=== PATIENT | female | born 1990 | race Hispanic/Latino ===

== ENCOUNTER → 2023-03-02 | Outpatient (REF) | payer MEDICARE, OTHER ==
[~2023-03-02] MED LIST: DAPTOMYCIN500 MG IV; HUMALOG MI100 UNIT/2 SQ; MINERAL OIL/PETROLAT/GLYCERI 6OZ BTL ONE; PIOGLITAZONE HC45 MG PO; ROSUVASTATIN CA40 MG; VITAMIN B-650 MG PO; XANAX1 MG PO; ZETIA10 MG PO
== END ==
LOC: WCC 08:56
PROVIDERS: ATTEND Podiatrist Foot & Ankle Surgery
DX: E11.621 Type 2 diabetes mellitus with foot ulcer (principal); M86.172 Other acute osteomyelitis, left ankle and foot; L97.528 Non-pressure chronic ulcer of other part of left foot with other specified severity; R60.0 Localized edema

== ENCOUNTER → 2023-03-11 | Outpatient (REF) | payer MEDICARE, OTHER | LOC: WCC 09:34 | PROVIDERS: ATTEND Podiatrist Foot & Ankle Surgery | DX: E11.621 Type 2 diabetes mellitus with foot ulcer (principal); M86.172 Other acute osteomyelitis, left ankle and foot; L97.528 Non-pressure chronic ulcer of other part of left foot with other specified severity; R60.0 Localized edema ==

== ENCOUNTER 2023-04-13 08:43 | Outpatient (RCR) | payer MEDICARE, OTHER ==
[2023-04-13] MEDS ORDERED: MINERAL OIL/PETROLAT/GLYCERI 6OZ BTL ONE (12:23)
== END 2023-04-13 23:25 | disposition home or self-care (01) ==
LOC: WCC 08:43
PROVIDERS: ATTEND Podiatrist Foot & Ankle Surgery
DX: E11.621 Type 2 diabetes mellitus with foot ulcer (principal); M86.172 Other acute osteomyelitis, left ankle and foot; L97.528 Non-pressure chronic ulcer of other part of left foot with other specified severity; L97.526 Non-pressure chronic ulcer of other part of left foot with bone involvement without evidence of necrosis; R60.0 Localized edema
CPT/HCPCS: 11042; 36415 ×14; 82948 ×14; 99212; 99213 ×10; G0277 ×14

== ENCOUNTER → 2023-05-13 | Outpatient (RCR) | payer MEDICARE, OTHER ==
[~2023-05-13] MED LIST changes: +MUPIROCIN 2% OINT 22 GM TUBE ONE
== END ==
LOC: WCC 04-16 09:14
PROVIDERS: ATTEND Podiatrist Foot & Ankle Surgery
DX: E11.621 Type 2 diabetes mellitus with foot ulcer (principal); M86.172 Other acute osteomyelitis, left ankle and foot; L97.528 Non-pressure chronic ulcer of other part of left foot with other specified severity; L97.526 Non-pressure chronic ulcer of other part of left foot with bone involvement without evidence of necrosis; R60.0 Localized edema
CPT/HCPCS: 11042; 36415 ×2; 82948 ×2; 99212 ×3; 99213 ×4; G0277 ×2